=== PATIENT | male | born 1960 | race Caucasian/White ===

== ENCOUNTER 2017-08-04 06:18 | Day surgery (SDC) | payer OTHER ==
--- NOTE | 2017-07-20 22:36 | HP ---
DATE OF ADMISSION: 08/04/2017 HISTORY OF PRESENT ILLNESS: This is the first orthopedic outpatient admission for surgery for this 56-year- old male who is being scheduled for a right shoulder arthroscopy with rotator cuff decompression of the AC joint and removal of exostosis and any indicated procedure. The patient has had a history of pain involving the shoulder for the last 4 or 5 months. He has had positive pain on any type of activity and had failed treatment. The patient was then seen through the orthopedic clinic, went through the MRI evaluation showing the severe arthritis and exostosis formation and it was discussed at that point that the patient to undergo a surgical decompression of the shoulder joint bone spurs. Procedure has been outlined to him. He understands and has consented to it. ALLERGIES: No known drug allergies. PAST MEDICAL HISTORY: The patient has a history of high blood pressure, cholesterol, and also a previous history of testicular cancer. CURRENT MEDICATIONS: Include: 1. Plavix. 2. Crestor. 3. Toprol. 4. Tramadol. 5. Zetia. 6. CoQ10. PAST SURGICAL HISTORY: Surgical history is positive. In 1995, the patient had a testicular cancer. Notes no anesthesia complications or problems. He has a negative bleeding history, negative blood clot history. SOCIAL HISTORY: He is a smoker 1 pack per day. ALCOHOL: Alcohol use is occasional. PHYSICAL EXAMINATION: GENERAL: Today reveals a well-developed, well-nourished 56-year-old male, in moderate distress. HEAD, EYES, EARS, NOSE, THROAT: Normocephalic. NECK: Supple. CHEST: Clear. COR: Regular rate. ABDOMEN: Soft. : Intact. EXTREMITIES: Examination of the right shoulder reveals severe pain with direct palpation of the AC joint. The patient has positive pain with Nava examination and Neer examination. RADIOGRAPHIC STUDIES: MRI evaluation reveals a severe AC joint degenerative disease with inferior exostosis creating a rotator cuff impingement. There were some biceps tendon edema. ASSESSMENT: Overall impression is right shoulder rotator cuff impingement with an AC joint arthritis. PLAN: The patient to undergo surgical arthroscopic decompression of the acromioclavicular joint. MMODAL /[id number] RM
[~2017-08-04 06:18] MED LIST: Lactated Ringers 1,000 ML IV SCH; Lidocaine 1%/Sod Bicarbonate in NS 8.4% 1 ML Syringe IDERM PRN; Sodium Chloride 0.9% 10 ML Syringe FLUSH PRN
[2017-08-04] MEDS ORDERED: Ropivacaine 0.5% 5 MG/ML 30 ML SDV ONE (06:37)
[2017-08-04] MEDS ORDERED: EPINEPHrine 1 MG/ML SDV ONE (06:37)
[2017-08-04] MEDS ORDERED: EPINEPHrine 1 MG/ML 30 ML MDV ONE (06:47)
[2017-08-04] MEDS ORDERED: Rocuronium 50 MG/5 ML Vial ONE ×2 (06:49→09:07)
[2017-08-04] MEDS ORDERED: Ondansetron 4 MG/2 ML SDV ONE (06:49)
[2017-08-04] MEDS ORDERED: Propofol 200 MG/20 ML SDV ONE (06:50)
[2017-08-04] MEDS ORDERED: Lidocaine 1% 6 ML ONE (06:50)
[2017-08-04] MEDS ORDERED: fentaNYL 100 MCG/2 ML SDV ONE (06:50)
[2017-08-04] MEDS ORDERED: Midazolam 1 MG/ML 2 ML SDV ONE (06:50)
[2017-08-04] MEDS ORDERED: ceFAZolin 1 GM Vial ONE (06:54)
--- NOTE | 2017-08-04 07:06 | PCM.PREANE ---
Preanesthetic Assessment - Procedure Proposed Procedure: Right shoulder rotator cuff repair - Anesthesia/Transfusion/Family Hx Anesthesia History: Prior Anesthesia Without Reaction Family History of Anesthesia Reaction: No Transfusion History: No Prior Transfusion(s) - Review of Systems General: No Symptoms Pulmonary: No Symptoms Cardiovascular: No Symptoms Gastrointestinal: No Symptoms Neurological: No Symptoms Other: Reports: Easy Bruising - Physical Assessment NPO Status Date: 08/03/17 NPO Status Time: 20:00 Pulse: 81 O2 Sat by Pulse Oximetry: 95 Respiratory Rate: 16 Blood Pressure: 154/85 Temperature: 36.9 C Vital Signs: Last Vital Signs Temp 36.9 C 08/04/17 06:25 Pulse 81 08/04/17 06:25 Resp 16 08/04/17 06:25 BP 154/85 H 08/04/17 06:25 Pulse Ox 95 08/04/17 06:25 Height: 1.78 m Weight: 84.368 kg ASA Class: 3 Mental Status: Alert & Oriented x3 Airway Class: Mallampati = 1 Dentition: Reports: Bridge (front top) Thyro-Mental Finger Breadths: 3 Mouth Opening Finger Breadths: 3 ROM/Head Extension: Full Lungs: Clear to Auscultation, Normal Respiratory Effort Cardiovascular: Regular Rate, Regular Rhythm, No Murmurs - Allergies Allergies/Adverse Reactions: Allergies Allergy/AdvReac Type Severity Reaction Status Date / Time No Known Allergies Allergy Verified 08/03/17 16:40 - Anesthesia Plan Pre-Op Medication Ordered: Beta Angelique Beta Angelique: Metoprolol Med Last Dose Date: 08/04/17 Med Last Dose Time: 05:00 - Acknowledgements Anesthesia Type Planned: General Anesthesia, Regional Block (right shoulder interscalene block for post-op pain control) Pt an Appropriate Candidate for the Planned Anesthesia: Yes Alternatives and Risks of Anesthesia Discussed w Pt/Guardian: Yes Pt/Guardian Understands and Agrees with Anesthesia Plan: Yes PreAnesthesia Questionnaire HEENT History: Reports: Impaired Vision, Other (See Below) Other HEENT History: wears glasses Cardiovascular History: Reports: CAD, High Cholesterol, Hypertension, CT, Other (See Below) Other Cardiovascular History: NSTEMI, history of angiogram Respiratory History: Reports: None Gastrointestinal History: Reports: None Genitourinary History: Reports: Other (See Below) Other Genitourinary History: malignant neoplasm of testes, left orchiectomy [employer] History: Reports: None Musculoskeletal History: Reports: Arthritis, Other (See Below) Other Musculoskeletal History: right shoulder pain, ac joint bone spurs, biceps tendinitis to the right, right shoulder rotator cuff impingment Neurological History: Reports: None Psychiatric History: Reports: None Endocrine/Metabolic History: Reports: None Hematologic History: Reports: None Immunologic History: Reports: None Oncologic (Cancer) History: Reports: Other (See Below) Other Oncologic History: testicular Dermatologic History: Reports: None - Past Surgical History Head Surgeries/Procedures: Reports: None Respiratory Surgical History: Reports: None GI Surgical History: Reports: None Endocrine Surgical History: Reports: None Neurological Surgical History: Reports: None Dermatological Surgical History: Reports: None - SUBSTANCE USE Smoking Status *Q: Current Every Day Smoker Tobacco Use Within Last Twelve Months: Cigarettes Second Hand Smoke Exposure: No Days Per Week of Alcohol Use: 1 Number of Drinks Per Day: 0 Total Drinks Per Week: 0 Recreational Drug Use History: No - HOME MEDS Home Medications: Home Meds Aspirin [Halfprin] 81 mg PO DAILY 08/03/17 [History] Clopidogrel Bisulfate [Clopidogrel] 75 mg PO DAILY 08/03/17 [History] Ezetimibe [Ezetimibe] 10 mg PO BEDTIME 08/03/17 [History] Ibuprofen [Motrin Ib] 400 - 600 mg PO Q6H PRN 08/03/17 [History] Metoprolol Succinate [Toprol Xl] 50 mg PO DAILY 08/03/17 [History] Rosuvastatin Calcium [Rosuvastatin Calcium] 10 mg PO DAILY 08/03/17 [History] Ubidecarenone [Coq-10] 300 mg PO DAILY 08/03/17 [History] traMADol HCl [Tramadol HCl] 50 mg PO Q8H PRN 08/03/17 [History] - CURRENT (IN HOUSE) MEDS Current Meds: Current Medications Lactated Ringer's (Ringers, Lactated) 1,000 mls @ 125 mls/hr IV ASDIRECTED BRII Stop: 08/04/17 23:00 Last Admin: 08/04/17 06:45 Dose: 125 mls/hr Lidocaine/Sodium Bicarbonate (Buffered Lidocaine 1% In Ns 8.4%) 0.25 ml IDERM ONETIME PRN PRN Reason: Prior to IV Start Stop: 08/04/17 18:00 Last Admin: 08/04/17 06:45 Dose: 0.25 ml Sodium Chloride (Saline Flush) 10 ml FLUSH ASDIRECTED PRN PRN Reason: Keep Vein Open Stop: 08/04/17 18:00 Discontinued Medications Cefazolin Sodium (Ancef) Confirm Administered Dose 2 gm .ROUTE .STK-MED ONE Stop: 08/04/17 06:55 Epinephrine HCl (Adrenalin) Confirm Administered Dose 1 mg .ROUTE .STK-MED ONE Stop: 08/04/17 06:38 Epinephrine HCl (Adrenalin) Confirm Administered Dose 30 mg .ROUTE .STK-MED ONE Stop: 08/04/17 06:48 Fentanyl (Sublimaze) Confirm Administered Dose 100 mcg .ROUTE .STK-MED ONE Stop: 08/04/17 06:51 Lidocaine HCl (Xylocaine-Mpf 1%) Confirm Administered Dose 6 mls @ as directed .ROUTE .STK-MED ONE Stop: 08/04/17 06:51 Midazolam HCl (Versed 1 Mg/Ml) Confirm Administered Dose 2 mg .ROUTE .STK-MED ONE Stop: 08/04/17 06:51 Ondansetron HCl (Zofran) Confirm Administered Dose 4 mg .ROUTE .STK-MED ONE Stop: 08/04/17 06:50 Propofol (Diprivan 20 Ml) Confirm Administered Dose 200 mg .ROUTE .STK-MED ONE Stop: 08/04/17 06:51 Rocuronium [place] (Zemuron) Confirm Administered Dose 50 mg .ROUTE .STK-MED ONE Stop: 08/04/17 06:50 Ropivacaine (Naropin 0.5%) Confirm Administered Dose 30 ml .ROUTE .STK-MED ONE Stop: 08/04/17 06:38
[2017-08-04] MEDS ORDERED: Iodine/Sodium Iodide 2% Tincture 30 ML Bottle ONE (07:22)
[2017-08-04] MEDS ORDERED: Morphine 15 MG Tab.ER PO SCH (07:45)
[2017-08-04] MEDS ORDERED: Ondansetron 4 MG/2 ML SDV IVPUSH PRN (07:45)
[2017-08-04] MEDS ORDERED: Cyclobenzaprine 10 MG Tab PO PRN (07:45)
[2017-08-04] MEDS ORDERED: Acetaminophen/oxyCODONE 325-5 MG Tab PO PRN (07:45)
[2017-08-04] MEDS ORDERED: HYDROmorphone 0.5 MG/0.5 ML Syringe IVPUSH PRN ×2 (07:45→10:36)
[2017-08-04] MEDS ORDERED: Ketorolac 15 MG/ML SDV IVPUSH PRN (07:45)
[2017-08-04] MEDS ORDERED: ePHEDrine/Normal Saline 25 MG/5 ML Syringe ONE ×2 (08:19→08:39)
[2017-08-04] MEDS ORDERED: Lactated Ringers 1,000 ML ONE ×2 (08:40→10:29)
--- NOTE | 2017-08-04 08:41 | PCM.SN ---
- Free Text/Narrative Note: Note: 08/04/2017 0837 161/92 79 95% 20 Surgeon and pt request post-op pain control for right shoulder surgery risk of block failure, facial numbness, site infection, and chronic pain discussed with pt and agreed to proceed. All standard monitors est. EKG, BP, Pulse Ox, 2L O2 and 2ml versed, 2ml fentanyl pre-op dx. right shoulder pain post-op dx right shoulder arthroscopy pt for interscalene block placement all standard monitors est. pt ID time out performed IV sedation 2ml versed, 2ml fentanyl, 2L NC O2, sterile prep and drape of right neck and shoulder U/S placed with visualization of brachial plexus from clavicle to cricoid local skin infiltration 22ga. Stimplex A insulated needle visualized at brachial plexus nerve stimulator at .9 Mary Amps stop at .4 Mary Amps with good bicep twitch with 1ml NaCl and lose of twitch neg aspirations every 5ml of 0.5% ropivacaine and 1:200,000 epi total of 30ml injected all done with U/S guidance needle withdrawn no complications noted pt tolerated procedure well block settling in start procedure at 0721 end procedure at 0736 146/78 79 95% 20
[2017-08-04] MEDS ORDERED: Phenylephrine/Normal Saline 100 MCG/ML 10 ML Syringe ONE (09:00)
[2017-08-04] MEDS ORDERED: Neostigmine Methylsulfate 1 MG/ML 5 ML Syringe ONE (10:34)
[2017-08-04] MEDS ORDERED: fentaNYL 250 MCG/5 ML SDV IVPUSH PRN (10:36)
--- NOTE | 2017-08-04 10:39 | PCM.POSTAN ---
POST ANESTHESIA ASSESSMENT - MENTAL STATUS Mental Status: Alert, Oriented - VITAL SIGNS Pulse Rate: 97 SaO2: 92 Resp Rate: 18 Blood Pressure: 130/81 Temperature: 36.9 C - RESPIRATORY Respiratory Status: Respiratory Rate WNL, Airway Patent, O2 Saturation Stable, Supplemental Oxygen - CARDIOVASCULAR CV Status: Pulse Rate WNL, Blood Pressure Stable - GASTROINTESTINAL GI Status: No Symptoms - PAIN Pain Score: 0 - POST OP HYDRATION Hydration Status: Adequate & Stable - OBSERVATIONS Free Text/Narrative:: no anesthesia complications noted
[2017-08-04] MEDS ORDERED: fentaNYL 100 MCG/2 ML SDV IVPUSH PRN (11:00)
[2017-08-04] MEDS ORDERED: Albuterol 0.083% 2.5 MG/3 ML Neb Soln NEB SCH (11:54)
--- NOTE | 2017-08-05 07:13 | OR ---
DATE OF OPERATION: 08/04/2017 SURGEON: Ricco Duran MD PREOPERATIVE DIAGNOSIS: 1. Severe rotator cuff impingement of right shoulder secondary to acromioclavicular joint arthritis. 2. Chronic rotator cuff tear of right shoulder. 3. Intra-articular fibrous adhesions tearing glenoid labrum of right shoulder. POSTOPERATIVE DIAGNOSIS: 1. Severe rotator cuff impingement of right shoulder secondary to acromioclavicular joint arthritis. 2. Chronic rotator cuff tear of right shoulder. 3. Intra-articular fibrous adhesions tearing glenoid labrum of right shoulder. ANESTHESIA: General. OPERATION PERFORMED: 1. Arthroscopic right shoulder intra-articular debridement of fibrous adhesions in glenoid labrum tear. 2. Arthroscopic decompression of right shoulder acromial exostosis formation. 3. Arthroscopic decompression of acromioclavicular joint and removal of exostosis in clavicle of right shoulder joint. 4. Repair of chronic rotator cuff tear in right shoulder by mini technique. DESCRIPTION OF PROCEDURE: The patient was taken to the operative room in supine position and placed under general anesthesia. He was then placed in the sitting position for arthroscopic approach to the right shoulder. Once the patient was in position, the operation proceeded with prepping and draping of the arm and shoulder by standard technique. After prepping and draping, the procedure began with the portal developed in the anatomical soft spot on the posterior aspect of the shoulder joint. The arthroscope was then entered into the joint, and then the anterior portal was developed with a Wissinger lb. Inspection of the intra-articular portion of the joint found the biceps tendon to be intact as was the subscapularis. The exited area of the biceps tendon through its foramen showed a significant severe synovitis and biceps tendinitis. There also was a degenerative rotator cuff tear of the right shoulder, and in the intra-articular portion, there was partial tearing and fibrous adhesions involving the glenoid labrum anterior joint region. Once that inspection was completed, the arthroscopy proceeded with debridement of the glenoid labrum and fibrous adhesions from the shoulder joint. The rotator cuff was marked with a suture for a later identification of the rotator cuff tear and the extra-articular portion of the surgery. Once the intra-articular portion was completed with the biceps tendon being intact, the operation proceeded with removal of the arthroscope and placement in the subacromial space. A lateral portal was then developed, and the operation proceeded with the bursectomy being carried out to identify the acromion and the AC joint. Once that was identified, there was a very large spurring coming off the acromion, extending anteriorly right into the area and region of the rotator cuff tear. Also, there was severe acromioclavicular joint degenerative disease with inferior exostosis formation of both the acromion and the clavicle, and superiorly on the clavicle. The operation proceeded with a partial acromionectomy until a nice, flat, smooth acromion was obtained and then acromioclavicular joint was then debrided, and then a partial distal clavicle resection was carried out to approximately 7 mm. Once that was opened, the final inspection of the AC joint was looking for any type of loose bone fragments. There was satisfactorily none present. The operation proceeded with a light debridement, and then electrocautery being used around the soft tissues and the bone structure areas. Then, the operation proceeded with withdrawal of the instrumentation from the subacromial space once the decompression was complete. The mini approach to the rotator cuff was then proceeded, with the incision being placed on the edge of the acromion extending distally approximately 2 cm, penetrating through the skin and subcutaneous tissues. The deltoid was then split, coming right down onto the torn rotator cuff. The tear was then evaluated, and once that was evaluated, the operation proceeded with a [employer] repair, re-attaching the rotator cuff back onto the humerus with a solid fixation. Once that was complete, the operation proceeded with irrigation of the subacromial space. Palpation of the undersurface of acromion found this to be smooth, and then the operation proceeded with closure of the deltoid interval with #1 Vicryl interrupted, subcutaneous tissue with 2-0 Vicryl, and skin with skin hansel. The patient was placed in standard dressings and abduction sling. He tolerated the procedure well, and left the operating room in stable condition to his room for recovery. ESTIMATED BLOOD LOSS: MMODAL /[id number]
== END 2017-08-04 12:50 | disposition home or self-care (01) ==
LOC: JD.SDS 06:18
PROVIDERS: ATTEND Specialist
DX: M19.011 Primary osteoarthritis, right shoulder (principal); M75.41 Impingement syndrome of right shoulder; M75.101 Unspecified rotator cuff tear or rupture of right shoulder, not specified as traumatic; I10 Essential (primary) hypertension; F17.210 Nicotine dependence, cigarettes, uncomplicated; I25.2 Old myocardial infarction; M75.21 Bicipital tendinitis, right shoulder; I25.10 Atherosclerotic heart disease of native coronary artery without angina pectoris; E78.2 Mixed hyperlipidemia; Z79.82 Long term (current) use of aspirin; Z85.47 Personal history of malignant neoplasm of testis; Z79.02 Long term (current) use of antithrombotics/antiplatelets; Z79.899 Other long term (current) drug therapy; Z90.79 Acquired absence of other genital organ(s)
CPT/HCPCS: 94640; A9270-GY; C1713; J0171; J0690; J2250; J2405; J2704; J2710; J2795; J3010; J7050; J7120

== ENCOUNTER 2021-09-19 10:00 | Day surgery (SDC) | payer OTHER ==
[~2021-09-19 10:00] MED LIST changes: +Dexamethasone 4 MG/ML 5 ML MDV ONE; +EPINEPHrine 1 MG/ML 30 ML MDV IRR SCH; +Ketorolac 30 MG/ML SDV ONE; +Lidocaine 1% 0 ML ONE; +Lidocaine 1% 4 ML ONE; +Midazolam 1 MG/ML 2 ML SDV ONE; +Ondansetron 4 MG/2 ML SDV ONE; +Propofol 200 MG/20 ML SDV ONE; +Rocuronium 50 MG/5 ML Vial ONE; +Ropivacaine 0.5% 5 MG/ML 30 ML SDV ONE; +Sodium Chloride 0.9% 10 ML Syringe FLUSH SCH; +fentaNYL 250 MCG/5 ML SDV ONE
[2021-09-19] MEDS ORDERED: Dexamethasone 4 MG/ML 5 ML MDV ONE (10:41)
[2021-09-19] MEDS ORDERED: Lidocaine 1% 2 ML ONE (10:42)
[2021-09-19] MEDS ORDERED: ePHEDrine 50 MG/ML SDV ONE (11:55)
[2021-09-19] MEDS ORDERED: ceFAZolin 1 GM Vial ONE (12:11)
[2021-09-19] MEDS ORDERED: Lactated Ringers 1,000 ML ONE (12:19)
[2021-09-19] MEDS ORDERED: HYDROmorphone 0.5 MG/0.5 ML Syringe IVPUSH PRN (13:12)
[2021-09-19] MEDS ORDERED: fentaNYL 100 MCG/2 ML SDV IVPUSH PRN (13:12)
[2021-09-19] MEDS ORDERED: Ondansetron 4 MG/2 ML SDV IVPUSH PRN (13:12)
[2021-09-19] MEDS ORDERED: Acetaminophen/HYDROcodone 325-5 MG Tab PO ONE (14:00)
== END 2021-09-19 15:20 | disposition home or self-care (01) ==
LOC: JD.SDS 10:00
PROVIDERS: ATTEND Orthopaedic Surgery
DX: M75.102 Unspecified rotator cuff tear or rupture of left shoulder, not specified as traumatic (principal); M75.22 Bicipital tendinitis, left shoulder; M25.812 Other specified joint disorders, left shoulder; F17.210 Nicotine dependence, cigarettes, uncomplicated; I10 Essential (primary) hypertension; I25.10 Atherosclerotic heart disease of native coronary artery without angina pectoris; E78.00 Pure hypercholesterolemia, unspecified; E55.9 Vitamin D deficiency, unspecified; Z79.82 Long term (current) use of aspirin; Z79.899 Other long term (current) drug therapy; Z98.890 Other specified postprocedural states
CPT/HCPCS: 29826; 29827; A9270; C1713; J0690; J1100; J1885; J2250; J2370; J2405; J2704; J2795; J3010; J7120; 01630; 64415; 76942